=== PATIENT | male | born 1995 ===

== ENCOUNTER 2018-11-17 22:07 | Emergency (ER) | payer BC ==
[~2018-11-17] VITALS: Ht 180.3 cm; Wt 81.6 kg
--- NOTE | 2018-11-17 22:22 | NUR ---
Dr. Varghese at bedside for MSE.
[2018-11-17] MEDS ORDERED: predniSONE 10 MG TABLET ONE (22:29)
[2018-11-17] MEDS ORDERED: predniSONE 50 MG TABLET ONE (22:29)
--- NOTE | 2018-11-17 22:29 | NUR ---
Xray at bedside.
[2018-11-17] MEDS ORDERED: ALBUTEROL SULFATE 2.5 MG/3 ML NEBU NEB ONE (22:30)
[2018-11-17] MEDS ORDERED: IPRATROPIUM BROMIDE 0.5 MG/2.5 ML NEBU NEB ONE (22:30)
[2018-11-17] MEDS ORDERED: predniSONE 10 MG TABLET PO ONE (22:30)
[2018-11-17 23:33] VITALS: BP 134/92
--- NOTE | 2018-11-17 23:33 | NUR ---
Patient discharged to home in stable conditon. Written and verbal after care instructions given. Patient verbalizes understanding of instructions. Patient ambulated out of ER with steady gait, no acute signs of distress, VSS, all belongings taken.
== END 2018-11-17 23:34 | disposition home or self-care (01) ==
LOC: ER 22:08
DX: J20.9 Acute bronchitis, unspecified (principal); J45.909 Unspecified asthma, uncomplicated; F12.10 Cannabis abuse, uncomplicated
CPT/HCPCS: 71045; 94640; 99283; J7512 ×2; A4663; J3590